=== PATIENT | male | born 2000 | race African-American/Black ===

== ENCOUNTER 2019-10-06 20:51 | Emergency (ER) | payer OTHER ==
[~2019-10-06] VITALS: Ht 182.9 cm; Wt 80.9 kg
[2019-10-06 20:51] VITALS: BP 120/71
--- NOTE | 2019-10-06 21:30 | PHYS DOC ---
Past History Past Medical History: No Pertinent History Adult General Chief Complaint Chief Complaint: LACERATION/AVULSION HPI HPI Patient is a healthy 19-year-old male who presents for laceration. Onset was just prior to arrival while at work. 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 Asymptomatic at present. Hemostasis achieved without intervention. 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 Of note, patient's tetanus vaccination is up-to-date Review of Systems Review of Systems Fourteen body systems of review of systems have been reviewed. See HPI for pertinent positives and negative responses, other ruiz all other systems are negative, non-pertinent or non-contributory Allergies Allergies Allergies Coded Allergies Type Severity Reaction Last Updated Verified amoxicillin Allergy Unknown 10/06/19 Yes Physical Exam Physical Exam Constitutional: Well developed, well nourished, no acute distress, non-toxic appearance. HENT: Normocephalic, atraumatic, bilateral external ears normal, oropharynx moist, no oral exudates, nose normal. Eyes: PERRLA, EOMI, conjunctiva normal, no discharge. Neck: Normal range of motion, no tenderness, supple, no stridor. Cardiovascular: Heart rate regular, sinus rhythm, no murmurs rubs or gallops Lungs & Thorax: Bilateral breath sounds clear to auscultation Abdomen: Bowel sounds normal, soft, no tenderness, no masses, no pulsatile masses. Nonsurgical abdomen, no peritoneal signs Skin: Warm, dry, no erythema, no rash. Back: No tenderness, no CVA tenderness. Extremities: No tenderness, no cyanosis, no clubbing, ROM intact, no edema. Well-appearing superficial laceration to ventral portion of third digit on left hand. No tendon or nerve involvement. No Knievel signs Neurologic: Alert and oriented X 3, normal motor & sensory function, no focal deficits noted. Psychologic: Affect normal, judgement normal, mood normal. Current Patient Data Vital Signs Vital Signs Date Time Temp Pulse Resp B/P (MAP) Pulse Ox O2 Delivery O2 Flow Rate FiO2 10/06/19 20:51 98.7 59 16 120/71 (87) 99 Room Air EKG EKG [] Radiology/Procedures Radiology/Procedures [] Course & Med Decision Making Course & Med Decision Making ABCs unremarkable Comprehensive history and physical exam obtained Verbal consent given to repair patient simple laceration with Dermabond Patient's wound irrigated copiously with tap water prior to fixation with Dermabond Strict return precautions discussed at length with good understanding by patient, all questions and concerns addressed Patient discharged home in stable condition with continued supportive care and continued wound care instructions with close PCP follow-up in upcoming 1 to 7 days to ensure resolution of patient's laceration Dragmaya Disclaimer Dragon Disclaimer This electronic medical record was generated, in whole or in part, using a voice recognition dictation system. Departure Departure: Impression: Primary Impression: Superficial laceration of left hand Disposition: HOME/RESIDENCE PRIOR TO ADM Condition: STABLE Referrals: PCP,NO (PCP) Patient Instructions: Laceration Care, Adult, Wound Care, [id number] Additional Instructions: As discussed prior to ER departure, please follow-up with your primary care physician in upcoming 1 to 4 days for follow-up evaluation You were given strict return precautions, if any of the discussed signs or symptoms present please call your PCP and/or re-present to our ER for additional medical evaluation It was a pleasure taking care of you today and I hope you have a quick recovery! Justification of Admission: Justification of Admission: Justification of Admission Dx: N/A JAMAL JACKSON DO Oct 06, 2019 21:30
== END 2019-10-06 21:38 | disposition home or self-care (01) ==
LOC: ER 20:51 → MERGE 20:51 → ER 21:38
DX: S61.213A Laceration without foreign body of left middle finger without damage to nail, initial encounter (principal); Z88.1 Allergy status to other antibiotic agents; W27.8XXA Contact with other nonpowered hand tool, initial encounter; Y93.89 Activity, other specified; Y92.89 Other specified places as the place of occurrence of the external cause; Y99.8 Other external cause status
CPT/HCPCS: 12001; 12002; 99282